=== PATIENT | female | born 1990 | race Caucasian/White ===

== ENCOUNTER 2016-08-29 14:31 | Emergency (ER) | payer MEDICAID ==
[2016-08-29 14:40] VITALS: BP 110/75
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
== END 2016-08-29 16:20 | disposition home or self-care (01) ==
LOC: LL.ED 14:31
DX: S63.631A Sprain of interphalangeal joint of left index finger, initial encounter (principal); F17.210 Nicotine dependence, cigarettes, uncomplicated; Z79.899 Other long term (current) drug therapy; X50.1XXA Overexertion from prolonged static or awkward postures, initial encounter
CPT/HCPCS: 73140-F1; 99283